=== PATIENT | female | born 1930 ===

== ENCOUNTER 2017-04-11 17:38 | Emergency (ER) | payer OTHER ==
[~2017-04-11] VITALS: Ht 167.6 cm; Wt 79.4 kg
[2017-04-11] MEDS ORDERED: MORPHINE SULFATE 2 MG/1 ML DISP.SYRIN IV ONE (18:00)
[2017-04-11] MEDS ORDERED: IV NORMAL SALINE 1000 ML BAG IV ONE ×2 (18:00→19:00)
[2017-04-11] MEDS ORDERED: DILTIAZEM HCL 25 MG IV IV ONE (18:00)
[2017-04-11] MEDS ORDERED: ONDANSETRON 4 MG/2 ML VIAL IV ONE (18:00)
[2017-04-11 18:14] VITALS: BP 113/76
[2017-04-11 18:19] LABS: BASOPHILS # (AUTO) 0.1 K/uL (0.0-8.0); BASOPHILS % (AUTO) 0.7 % (0.0-2.0); EOSINOPHILS % (AUTO) 0.3 % (0.0-7.0); HEMATOCRIT 32.5 % (31.2-41.9); HEMOGLOBIN 10.3 g/dL (10.9-14.3); LYMPHOCYTES % (AUTO) 7.9 % (20.5-51.5); MEAN CORPUSCULAR HEMOGLOBIN 26.6 uug (24.7-32.8); MEAN CORPUSCULAR HGB CONC 32 g/dL (32.3-35.6); MEAN CORPUSCULAR VOLUME 83.5 fL (75.5-95.3); MONOCYTES # (AUTO) 0.5 K/uL (2.0-10.0); MONOCYTES % (AUTO) 3.9 % (0.0-11.0); NEUTROPHILS # (AUTO) 11.5 K/uL (1.8-8.9); NEUTROPHILS % (AUTO) 87.2 % (38.5-71.5); PLATELET COUNT (AUTO) 265 K/uL (179-408); WHITE BLOOD COUNT (AUTO) 13.2 K/uL (3.8-11.8)
[2017-04-11 18:23] LABS: CARBON DIOXIDE 24 mmol/L (21-32); CHLORIDE 104 mmol/L (98-107); CREATININE 1.2 mg/dL (0.6-1.3); GLUCOSE 227 mg/dL (74-106); POTASSIUM 4.6 mmol/L (3.5-5.1); UREA NITROGEN, BLOOD 13 mg/dL (7-18)
[2017-04-11] MEDS ORDERED: DILTIAZEM HCL 25 MG IV ONE (18:23)
[2017-04-11] MEDS ORDERED: ONDANSETRON 4 MG/2 ML VIAL ONE (18:23)
[2017-04-11] MEDS ORDERED: MORPHINE SULFATE 4 MG/1 ML DISP.SYRIN ONE (18:23)
[2017-04-11 18:29] LABS: ALANINE AMINOTRANSFERASE 28 U/L (14-59); ALKALINE PHOSPHATASE 97 U/L (50-136); ASPARTATE AMINOTRANSFERASE 46 U/L (15-37); BILIRUBIN,DIRECT 0.2 mg/dL (0.0-0.2); BILIRUBIN,TOTAL 0.6 mg/dL (0.2-1.0); TOTAL PROTEIN, SERUM 7.7 g/dL (6.4-8.2)
[2017-04-11] MEDS ORDERED: GENTAMICIN SULFATE INJ 80 MG in IV DEXTROSE 5% 100 ML IV ONE (19:00)
[2017-04-11] MEDS ORDERED: CEFTRIAXONE 1 G in IV DEXTROSE 5% 50 ML IV ONE (19:00)
[2017-04-11] MEDS ORDERED: CEFTRIAXONE 1 G VIAL ONE (19:26)
--- NOTE | 2017-04-11 19:27 | NUR ---
PATIENT IS REFUSING TO HAVE ANY MEDICATION ADMINISTERED AT THIS TIME. PATIENT IS A/OX2, IS AT THE BEDSIDE.
--- NOTE | 2017-04-11 20:26 | NUR ---
PATIENT'S DAUGHTER ON THE PHONE WITH DR. ROBLES. PATIENT DOES NOT WANT TREATMENT HERE AT THIS HOSPITAL UNTIL DAUGHTER SPEAKS WITH DR. ROBLES.
--- NOTE | 2017-04-11 21:00 | NUR ---
PATIENT FINISHED TALKING TO DAUGHTER AND IS STILL REFUSING TO HAVE ANY TREATMENT DONE AT THIS TIME. DR. ROBLES MADE AWARE.
--- NOTE | 2017-04-11 21:43 | NUR ---
[facility] CONTACTED AT THIS TIME.
--- NOTE | 2017-04-11 22:10 | NUR ---
PATIENT DECIDED TO HAVE MEDICATION STARTED AT THIS TIME.
[2017-04-11] MEDS ORDERED: GENTAMICIN SULFATE 80 MG/2 ML VIAL ONE (22:29)
--- NOTE | 2017-04-12 01:15 | NUR ---
REPORT GIVEN TO CHIRAG GOODSON AT [facility]. PATIENT WILL BE PICKED UP AND TRANSPORTED TO [facility] ROOM [facility]01[facility].
--- NOTE | 2017-04-12 02:16 | NUR ---
REPORT GIVEN TO [facility].
== END 2017-04-12 02:30 | disposition short-term general hospital (02) ==
LOC: ER 17:41
DX: A41.9 Sepsis, unspecified organism (principal); R65.21 Severe sepsis with septic shock; G89.29 Other chronic pain; M54.9 Dorsalgia, unspecified; I50.9 Heart failure, unspecified; J18.9 Pneumonia, unspecified organism
CPT/HCPCS: 36415; 70030-TC; 71010; 72131; 83605; 85025; 85730; 87040; 87400; 93005; A4663; J0696; J1580; J2270; J2405; J3490; J7030; J7060